=== PATIENT | female | born 1965 | race Caucasian/White ===

== ENCOUNTER → 2018-09-14 | Outpatient (CLI) | payer BC ==
--- NOTE | 2018-09-14 22:43 | MR ---
MRI CERVICAL SPINE: CLINICAL HISTORY: Cervical disc degeneration per order. Headache with neck pain and stiffness and wea kness for for 5 years causing pain or weakness into both arms and fingers per patient. TECHNIQUE: Multiplanar, multisequence imaging of the cervical spine is performed without IV contrast. COMPARISON: None. FINDINGS: Evaluation is suboptimal due to motion artifact degradation. Sagittal images of the cervica l spine show the craniocervical junction to appear within normal limits. The cervical and upper thor acic spinal cord is normal in caliber and signal. There is straightening of cervical spine with grade 1 retrolisthesis of C5 on C6 and C6 on C7. The vertebral body heights are normal. Mild to moderate disc space narrowing C5-C6 and C6-C7 level is present. Multilevel posterior disc herniations efface the anterior thecal sac C3-C4 through C6-C7 level on sagittal images. The bone marrow signal intensit y is within normal limits. Mild to moderate multilevel anterior spurring in the mid to lower cervical spine is present. Axial images at the C2-C3 level are felt within normal limits. Axial images at C3-C4 level broad-based posterior disc protrusion effacing anterior thecal sac and ca using asymmetric mild right-sided neural foraminal narrowing. Axial images at the C4-C5 level shows central disc protrusion effacing the anterior thecal sac, bilat eral neural foramina are patent. Axial images at C5-C6 level shows spondylosis and broad-based posterior disc protrusion with left for aminal component effaces the anterior thecal sac and causing advanced left-sided neural foraminal oralia rowing. Right-sided neural foramina is patent. Axial images at C6-C7 level shows subtle spondylolisthesis and broad-based left paracentral/foraminal disc protrusion effacing the anterolateral thecal sac and causing moderate to advanced left-sided ne ural foraminal narrowing. Right-sided neural foramina is patent. Axial images at C7-T1 level are both within normal limits. IMPRESSION: Straightening of cervical spine with spondylolisthesis and degenerative change most promi nent at C5-C6 and C6-C7 level as detailed above.
== END | disposition home or self-care (01) ==
LOC: RADMRIMAIN 19:52
PROVIDERS: ATTEND Internal Medicine Rheumatology
DX: M47.812 Spondylosis without myelopathy or radiculopathy, cervical region (principal); M43.12 Spondylolisthesis, cervical region
CPT/HCPCS: 72141